=== PATIENT | female | born 2000 | race Caucasian/White ===

== ENCOUNTER 2022-12-29 23:31 | Emergency (ER) | payer OTHER, MEDICAID ==
[~2022-12-29] VITALS: Ht 180.3 cm; Wt 95.3 kg
[2022-12-29 23:50] VITALS: BP 133/61; PULSE 86; RESP 16; TEMP 98.2; O2SAT 97
[2022-12-30] MEDS ORDERED: FLUORESCEIN OPTH STRIP 1 MG OP ONE (00:20)
[2022-12-30] MEDS ORDERED: FLUORESCEIN OPTH STRIP 1 MG ONE (00:23)
[2022-12-30] MEDS ORDERED: TETRACAINE HCL/PF 0.5% OPTH 4 ML BTL ONE (00:23)
[2022-12-30] MEDS ORDERED: POLY10SO OP (01:24)
[2022-12-30 01:30] VITALS: BP 133/61; PULSE 86; RESP 16; TEMP 98.2; O2SAT 97
== END 2022-12-30 01:30 | disposition home or self-care (01) ==
LOC: MED 23:31
DX: S00.12XA Contusion of left eyelid and periocular area, initial encounter (principal); V49.88XA Car occupant (driver) (passenger) injured in other specified transport accidents, initial encounter; Y93.89 Activity, other specified; Y92.89 Other specified places as the place of occurrence of the external cause; Y99.8 Other external cause status
CPT/HCPCS: 70450; 70480; 81025; 99284